=== PATIENT | female | born 1945 | race Caucasian/White ===

== ENCOUNTER 2017-11-26 18:17 | Emergency (ER) | payer MEDICARE ==
[2017-11-26 19:23] LABS: #Basophils 0.1 thou/uL (0.0-0.2); #Eosinphils 0.1 thou/uL (0.0-0.7); #Monocytes 0.4 thou/uL (0.11-0.59); #Neutrophils 2.1 thou/uL (1.40-6.50); %Basophils 1.7 % (0.0-1.0); %Eosinophils 1.8 % (0.0-10.0); %Lymphocytes 43.1 % (21.0-51.0); %Monocytes 8.8 % (0.0-10.0); %Neutrophils 44.7 % (42.0-75.0); Hemoglobin 10.1 g/dL (12.0-16.0); Mean Corpuscular HGB CONC 34.8 g/dL (32.0-36.0); Mean Corpuscular Hemoglobin 35.7 pg (27.0-31.0); Mean Platelet Volume 7.6 fL (7.4-10.4); Platelet Count 179 thou/uL (130-400); RBC Distribution Width 11.8 % (11.5-14.5); Red Blood Cell (RBC) Count 2.84 mill/uL (4.20-5.40); White Blood Cell (WBC) Count 4.7 thou/uL (4.8-10.8)
[2017-11-26 19:45] LABS: ALT (SGPT) 24 U/L (8-55); AST (SGOT) 28 U/L (5-34); Alkaline Phosphatase 56 U/L (40-150); Anion Gap 13 mmol/L (10-20); BUN (Urea Nitrogen) 17 mg/dL (9.8-20.1); Bilirubin, Total 0.3 mg/dL (0.2-1.2); Calc. Creatinine Clearance 0 mL/min (70-130); Calcium 9.1 mg/dL (7.8-10.44); Carbon Dioxide 23 mmol/L (23-31); Chloride 102 mmol/L (98-107); Estimated GFR-MDRD 61; Globulin 2.3 g/dL (2.4-3.5); Glucose 92 mg/dL (80-115); Potassium 5.3 mmol/L (3.5-5.1); Protein, Total 6.3 g/dL (6.0-8.3); Sodium 133 mmol/L (136-145)
== END 2017-11-26 20:42 | disposition home or self-care (01) ==
LOC: ERS 18:17
DX: E87.5 Hyperkalemia (principal); E87.1 Hypo-osmolality and hyponatremia; E03.9 Hypothyroidism, unspecified; E78.5 Hyperlipidemia, unspecified; I10 Essential (primary) hypertension
CPT/HCPCS: 36415; 93005

== ENCOUNTER 2018-07-11 10:15 | Outpatient (CLI) | payer MEDICARE ==
[2018-07-11 10:58] LABS: Estimated GFR-MDRD - POC Greater than 90
--- NOTE | 2018-07-11 15:37 | MRI ---
BRAIN MRI WITH AND WITHOUT CONTRAST 07/11/18 HISTORY: Memory loss, x2 months. COMPARISON: None. TECHNIQUE: MRI of brain is performed with and without intravenous gadolinium administration. Multisequential, mu ltiplanar imaging is performed. FINDINGS: Appropriate T1 marrow signal intensity of the calvarium. Midline brain parenchymal structures are unr emarkable. No hemorrhage on the axial gradient echo sequence. T2 and FLAIR white matter hyperintensities are due to chronic small vessel ischemic change. Central arterial flow voids are maintained. Absent restricted diffusion. Adequate aeration of the sin uses and mastoid air cells. No parenchymal mass, mass effect, or midline shift. Brain volume is age appropriate. Cortical richey-wh ite matter differentiation is preserved. No evidence of hydrocephalus. No pathologic enhancement of t he brain parenchyma. IMPRESSION: 1. Absent restricted diffusion. No acute infarct. 2. No pathologic enhancement of the brain parenchyma. 3. Brain volume, age appropriate. 4. Chronic small vessel ischemic changes of the white matter. POS: CET
== END 2018-07-11 10:16 | disposition home or self-care (01) ==
LOC: SCSMRI 10:15
PROVIDERS: ATTEND Psychiatry & Neurology Neurology
DX: G31.1 Senile degeneration of brain, not elsewhere classified (principal); R90.82 White matter disease, unspecified
CPT/HCPCS: 70553; 82565

== ENCOUNTER 2018-07-30 09:47 | Outpatient (CLI) | payer MEDICARE ==
--- NOTE | 2018-07-30 10:31 | MMO ---
BILATERAL SCREENING MAMMOGRAM: HISTORY: A 73-year-old female. Screening mammography. COMPARISON: 05/18/2014 and 06/15/2015 TECHNIQUE: CC and MLO view of both breasts are submitted for interpretation. This patient's mammogram is review ed with the assistance of computer aided detection. FINDINGS: The breasts are composed of heterogeneously dense fibroglandular tissue, which limits the sensitivity of mammography in the detection of underlying malignancy. Bilaterally, no suspicious dominant mass, architectural distortion, or suspicious calcifications. Bilateral benign appearing calcifications are present. Stable nodule in the left breast. IMPRESSION: BI-RADS Category 2-Benign findings. RECOMMENDATIONS: Annual mammogram. POS: TING
== END 2018-07-30 09:48 | disposition home or self-care (01) ==
LOC: SCSMAMMO 09:47
PROVIDERS: ATTEND Family Medicine
DX: Z12.31 Encounter for screening mammogram for malignant neoplasm of breast (principal)
CPT/HCPCS: 77067

== ENCOUNTER 2019-03-14 12:30 | Emergency (ER) | payer MEDICARE ==
[2019-03-14] MEDS ORDERED: Morphine 4 MG/ML VIAL ONE (12:49)
--- NOTE | 2019-03-14 13:10 | RAD ---
LEFT WRIST 3 VIEWS: CLINICAL HISTORY: Injury. FINDINGS: Comminuted intra-articular fracture of distal radius is present with mild override of fracture fragme nts and mild apex dorsal tilt of the radiocarpal articulation. There is a mildly displaced, obliquely oriented distal ulnar fracture. Sequela from prior ulnar styloid avulsion noted. There is o steoarthritis, and osseous demineralization. IMPRESSION: Acute distal radial and ulnar fractures, as above. Recommend orthopedic consultation. Transcribed Date/Time: 03/14/2019 1:18 PM
[2019-03-14] MEDS ORDERED: Bacitracin 1 PK ONE (13:54)
--- NOTE | 2019-03-14 14:51 | RAD ---
XR Foot Rt 3 View STANDARD: 03/14/2019 1:00 PM CLINICAL INDICATION: Injury COMPARISON: None. FINDINGS: Fracture:No fracture. Arthropathy:There is scattered mild to moderate degenerative change. Osseous demineralization present. There are calcaneal enthesophytes. Incidental findings:None of significance. IMPRESSION: No acute osseous abnormality.
== END 2019-03-14 14:21 | disposition home or self-care (01) ==
LOC: SCSER 12:30
DX: S52.572A Other intraarticular fracture of lower end of left radius, initial encounter for closed fracture (principal); S52.602A Unspecified fracture of lower end of left ulna, initial encounter for closed fracture; E03.9 Hypothyroidism, unspecified; E78.5 Hyperlipidemia, unspecified; E78.00 Pure hypercholesterolemia, unspecified; I10 Essential (primary) hypertension; F03.90 Unspecified dementia, unspecified severity, without behavioral disturbance, psychotic disturbance, mood disturbance, and anxiety; Z87.891 Personal history of nicotine dependence; Z79.899 Other long term (current) drug therapy; W01.0XXA Fall on same level from slipping, tripping and stumbling without subsequent striking against object, initial encounter; Y92.009 Unspecified place in unspecified non-institutional (private) residence as the place of occurrence of the external cause
CPT/HCPCS: 29125; 96372; J2270

== ENCOUNTER 2022-09-03 07:56 | Outpatient (CLI) | payer MEDICARE | END 2022-09-03 07:57 | disposition home or self-care (01) | LOC: BICRAD 07:56 | PROVIDERS: ATTEND Surgery | DX: S22.081A Stable burst fracture of T11-T12 vertebra, initial encounter for closed fracture (principal); S32.009A Unspecified fracture of unspecified lumbar vertebra, initial encounter for closed fracture | CPT/HCPCS: 72100 ==

== ENCOUNTER 2022-10-12 08:53 | Outpatient (CLI) | payer MEDICARE | END 2022-10-12 08:54 | disposition home or self-care (01) | LOC: BICRAD 08:53 | PROVIDERS: ATTEND Surgery | DX: S22.081A Stable burst fracture of T11-T12 vertebra, initial encounter for closed fracture (principal); S32.009A Unspecified fracture of unspecified lumbar vertebra, initial encounter for closed fracture; M47.816 Spondylosis without myelopathy or radiculopathy, lumbar region; M47.817 Spondylosis without myelopathy or radiculopathy, lumbosacral region; R29.890 Loss of height | CPT/HCPCS: 72100 ==